=== PATIENT | male | born 1950 | race Caucasian/White ===

== ENCOUNTER 2023-05-27 00:53 | Inpatient (IN) | payer MEDICARE, OTHER ==
[~2023-05-27] VITALS: Ht 177.8 cm; Wt 71.8 kg
[2023-05-27] VITALS (18 sets, daily range): BP systolic 99–128; BP diastolic 26–69; TEMP 96.3–98; O2SAT 98–100
[2023-05-27] MEDS ORDERED: IV NORMAL SALINE 1000 ML BAG IV ONE (01:00)
[2023-05-27 01:10] LABS: BASOPHILS % (AUTO) 0.4 % (0.0-2.0); EOSINOPHILS # (AUTO) 0.1 K/uL (0.0-0.7); EOSINOPHILS % (AUTO) 1.4 % (0.0-7.0); LYMPHOCYTES # (AUTO) 1.9 K/uL (0.8-4.8); LYMPHOCYTES % (AUTO) 19.7 % (20.5-51.5); MEAN CORPUSCULAR HEMOGLOBIN 31.8 uug (23.8-33.4); MEAN CORPUSCULAR HGB CONC 34 g/dL (32.5-36.3); MEAN CORPUSCULAR VOLUME 94.9 fL (73.0-96.2); MONOCYTES % (AUTO) 10.2 % (0.0-11.0); NEUTROPHILS # (AUTO) 6.7 K/uL (1.8-8.9); NEUTROPHILS % (AUTO) 68.3 % (38.5-71.5); PLATELET COUNT (AUTO) 260 K/uL (152-348); RED CELL DISTRIBUTION WIDTH 18.9 % (12.1-16.2); WHITE BLOOD COUNT (AUTO) 9.8 K/uL (3.6-10.2)
[2023-05-27 01:11] LABS: RED BLOOD CELL COUNT(AUTO) 1.56 MIL/uL (4.06-5.63)
[2023-05-27] MEDS ORDERED: PANTOPRAZOLE SODIUM IV 40 MG in IV DEXTROSE 5% 100 ML IV ONE (01:15)
[2023-05-27 01:19] LABS: DIFFERENTIAL COMMENT 1; HEMATOCRIT 14.8 % (36.7-47.1)
[2023-05-27 01:21] LABS: AMMONIA 16 umol/L (11-32)
[2023-05-27 01:28] LABS: ALANINE AMINOTRANSFERASE 36 U/L (16-63); ALBUMIN 1.9 g/dL (3.4-5.0); ALKALINE PHOSPHATASE 149 U/L (50-136); ASPARTATE AMINOTRANSFERASE 40 U/L (15-37); BILIRUBIN,DIRECT 0.1 mg/dL (0.0-0.2); BILIRUBIN,TOTAL 0.4 mg/dL (0.2-1.0); CARBON DIOXIDE 21 mmol/L (21-32); CHLORIDE 104 mmol/L (98-107); CREATININE 3.1 mg/dL (0.6-1.3); GLUCOSE 124 mg/dL (74-106); POTASSIUM 4.6 mmol/L (3.5-5.1); SODIUM SERUM 135 mmol/L (136-145); TOTAL PROTEIN, SERUM 7.4 g/dL (6.4-8.2)
[2023-05-27] MEDS ORDERED: OCTREOTIDE ACETATE INJ 500 MCG in IV DEXTROSE 5% 100 ML IV ONE (01:30)
[2023-05-27 01:32] LABS: UREA NITROGEN, BLOOD 93 mg/dL (7-18)
[2023-05-27] MEDS ORDERED: ASCO500C18 PO (01:45)
[2023-05-27] MEDS ORDERED: LEVO75TA7 PO (01:45)
[2023-05-27] MEDS ORDERED: CARV6.252 PO (01:45)
[2023-05-27] MEDS ORDERED: CHOL100045 PO (01:45)
[2023-05-27] MEDS ORDERED: MULT-213 PO (01:45)
[2023-05-27] MEDS ORDERED: CYAN100096 PO (01:45)
[2023-05-27] MEDS ORDERED: MAGN400O6 PO (01:45)
[2023-05-27] MEDS ORDERED: BISA10SU61 RC (01:45)
[2023-05-27] MEDS ORDERED: ACET-73 PO (01:45)
[2023-05-27] MEDS ORDERED: AMLO1TAB98 PO (01:45)
[2023-05-27] MEDS ORDERED: NYST15CR38 TP (01:45)
[2023-05-27] MEDS ORDERED: DOCU100T2 PO (01:45)
[2023-05-27 01:49] LABS: *BILIRUBIN,URIN NEGATIVE (NEGATIVE); *BLOOD, URINE 2+ (NEGATIVE); *CLARITY,URINE CLEAR (CLEAR); *COLOR,URINE YELLOW (YELLOW); *KETONES,URINE NEGATIVE (NEGATIVE); *UROBILINOGEN,URINE 0.2 E.U./dl (NORMAL); LEUKOCYTE ESTERASE ,URINE NEGATIVE (NEGATIVE); NITRITE, URINE NEGATIVE (NEGATIVE); PH,URINE 5.5 (5.0-8.0); UGLUCOSE NEGATIVE (NEGATIVE)
[2023-05-27] MEDS ORDERED: PANTOPRAZOLE SODIUM 40 MG VIAL ONE (01:54)
[2023-05-27] MEDS ORDERED: OCTREOTIDE ACETATE 50 MCG/1 ML ML ONE (01:56)
[2023-05-27 01:59] LABS: *PROTEIN,URINE 3+ (NEGATIVE)
[2023-05-27 02:02] LABS: BACTERIA,URINE FEW /HPF (NONE SEEN); RBC,URINE 20-50 /HPF (0-3); SQUAMOUS EPITHELIAL CELL,UR NONE SEEN /HPF (NONE SEEN); WBC,URINE 0-3 /HPF (0-3)
[2023-05-27] MEDS ORDERED: ONDANSETRON 4 MG/2 ML VIAL IV PRN (06:00)
[2023-05-27] MEDS ORDERED: ACETAMINOPHEN 325 MG TABLET PO PRN (06:00)
[2023-05-27] MEDS ORDERED: PIPERACILLIN SODIUM/TAZOBACTAM 3.375 G in IV DEXTROSE 5% 50 ML IV ONE (08:00)
[2023-05-27] MEDS: PANTOPRAZOLE SODIUM 40 MG VIAL IV SCH ×2 (08:34→21:46)
[2023-05-27] MEDS: IV NS 1000 ML 1,000 ML IV PRN (10:16)
[2023-05-27] MEDS ORDERED: CRAN425C6 PO (10:41)
[2023-05-27] MEDS ORDERED: NYST1POW TOP (10:44)
[2023-05-27] MEDS ORDERED: PIPERACILLIN SODIUM/TAZOBACTAM 3.375 G in IV DEXTROSE 5% 50 ML IV SCH (12:00)
[2023-05-27 12:46] LABS: HEMOGLOBIN 4.2 g/dL (12.5-16.3)
[2023-05-27 12:47] LABS: HEMATOCRIT 12.4 % (36.7-47.1)
[2023-05-27] MEDS: OCTREOTIDE ACETATE DRIP 500 MCG in IV NORMAL SALINE 99 ML IV SCH (12:59)
[2023-05-27] MEDS: PIPERACILLIN SODIUM/TAZOBACTAM 3.375 G in IV DEXTROSE 5% 100 ML IV SCH (16:00)
[2023-05-27] MEDS: CARVEDILOL 6.25 MG TABLET PO SCH ×2 (18:00→20:04)
[2023-05-27] MEDS ORDERED: LABETALOL HCL 100 MG/20 ML VIAL IV PRN (20:45)
[2023-05-27] MEDS: ATORVASTATIN 20 MG TABLET PO SCH (21:00)
[2023-05-27] MEDS ORDERED: AMLODIPINE 10 MG TABLET PO SCH (21:00)
[2023-05-27 22:25] LABS: HEMATOCRIT 17.8 % (36.7-47.1); HEMOGLOBIN 5.9 g/dL (12.5-16.3)
[2023-05-28] VITALS (33 sets, daily range): BP systolic 97–130; BP diastolic 44–71; TEMP 97.5–99.6; O2SAT 100
[2023-05-28] MEDS: OCTREOTIDE ACETATE DRIP 500 MCG in IV NORMAL SALINE 99 ML IV SCH ×4 (01:32→20:26)
[2023-05-28] MEDS: PIPERACILLIN SODIUM/TAZOBACTAM 3.375 G in IV DEXTROSE 5% 100 ML IV SCH ×4 (01:32→23:06)
[2023-05-28 05:08] LABS: BASOPHILS % (AUTO) 0.3 % (0.0-2.0); EOSINOPHILS # (AUTO) 0.1 K/uL (0.0-0.7); LYMPHOCYTES # (AUTO) 1.1 K/uL (0.8-4.8); MONOCYTES # (AUTO) 0.8 K/uL (0.1-1.30)
[2023-05-28 05:11] LABS: EOSINOPHILS % (AUTO) 0.7 % (0.0-7.0); LYMPHOCYTES % (AUTO) 11.8 % (20.5-51.5); MEAN CORPUSCULAR HEMOGLOBIN 30.4 uug (23.8-33.4); MEAN CORPUSCULAR HGB CONC 35 g/dL (32.5-36.3); MEAN CORPUSCULAR VOLUME 86.7 fL (73.0-96.2); MONOCYTES % (AUTO) 8.9 % (0.0-11.0); NEUTROPHILS # (AUTO) 7.2 K/uL (1.8-8.9); NEUTROPHILS % (AUTO) 78.3 % (38.5-71.5); PLATELET COUNT (AUTO) 141 K/uL (152-348); RED CELL DISTRIBUTION WIDTH 16.5 % (12.1-16.2); WHITE BLOOD COUNT (AUTO) 9.1 K/uL (3.6-10.2)
[2023-05-28 05:15] LABS: HEMATOCRIT 20.4 % (36.7-47.1); HEMOGLOBIN 7.2 g/dL (12.5-16.3); RED BLOOD CELL COUNT(AUTO) 2.36 MIL/uL (4.06-5.63)
[2023-05-28 05:16] LABS: DIFFERENTIAL COMMENT 1
[2023-05-28 05:21] LABS: CALCIUM 7.7 mg/dL (8.5-10.1); CARBON DIOXIDE 21 mmol/L (21-32); CHLORIDE 113 mmol/L (98-107); CREATININE 3.3 mg/dL (0.6-1.3); GLUCOSE 148 mg/dL (74-106); MAGNESIUM 1.7 mg/dL (1.8-2.4); PHOSPHOROUS 4.8 mg/dL (2.5-4.9); POTASSIUM 5.2 mmol/L (3.5-5.1); SODIUM SERUM 143 mmol/L (136-145)
[2023-05-28 05:28] LABS: UREA NITROGEN, BLOOD 82 mg/dL (7-18)
[2023-05-28] MEDS: LEVOTHYROXINE SODIUM 75 MCG TABLET PO SCH (06:07)
[2023-05-28 07:23] LABS: HEMATOCRIT 20.6 % (36.7-47.1)
[2023-05-28] MEDS ORDERED: ASCORBIC ACID 500 MG TABLET PO SCH (09:00)
[2023-05-28] MEDS ORDERED: Medication Not On Formulary EA (Ascorbic Acid (Vitamin C) 500 MG) PO SCH (09:00)
[2023-05-28] MEDS ORDERED: Medication Not On Formulary EA (Cholecalciferol (Vitamin D3) (Vitamin D3) 1,000 UNITS) PO SCH (09:00)
[2023-05-28] MEDS: CHOLECALCIFEROL 1,000 UNIT TABLET PO SCH (09:00)
[2023-05-28] MEDS: PANTOPRAZOLE SODIUM 40 MG VIAL IV SCH ×2 (09:35→20:54)
[2023-05-28] MEDS ORDERED: FUROSEMIDE 20 MG/2 ML VIAL IV ONE ×2 (11:30→22:00)
[2023-05-28] MEDS ORDERED: LIDOCAINE-MPF 2% 5 ML VIAL ONE (13:00)
[2023-05-28] MEDS ORDERED: PROPOFOL 200 MG/20 ML BOTTLE ONE (13:00)
[2023-05-28] MEDS ORDERED: EPHEDRINE SULFATE 50 MG/ML AMPUL ONE (13:00)
[2023-05-28 15:19] LABS: BASOPHILS % (AUTO) 0.4 % (0.0-2.0); EOSINOPHILS # (AUTO) 0.1 K/uL (0.0-0.7); EOSINOPHILS % (AUTO) 1.1 % (0.0-7.0); LYMPHOCYTES # (AUTO) 1.3 K/uL (0.8-4.8); MEAN CORPUSCULAR HEMOGLOBIN 28.9 uug (23.8-33.4); MEAN CORPUSCULAR HGB CONC 33 g/dL (32.5-36.3); MEAN CORPUSCULAR VOLUME 86.4 fL (73.0-96.2); MONOCYTES # (AUTO) 0.9 K/uL (0.1-1.30); MONOCYTES % (AUTO) 10.2 % (0.0-11.0); NEUTROPHILS # (AUTO) 6.4 K/uL (1.8-8.9); NEUTROPHILS % (AUTO) 73.3 % (38.5-71.5); PLATELET COUNT (AUTO) 125 K/uL (152-348); RED CELL DISTRIBUTION WIDTH 16.3 % (12.1-16.2); WHITE BLOOD COUNT (AUTO) 8.7 K/uL (3.6-10.2)
[2023-05-28 15:20] LABS: RED BLOOD CELL COUNT(AUTO) 2.26 MIL/uL (4.06-5.63)
[2023-05-28 15:22] LABS: DIFFERENTIAL COMMENT 1; HEMATOCRIT 19.6 % (36.7-47.1); HEMOGLOBIN 6.5 g/dL (12.5-16.3)
[2023-05-28 18:12] LABS: BASOPHILS % (AUTO) 0.4 % (0.0-2.0); EOSINOPHILS # (AUTO) 0.1 K/uL (0.0-0.7); EOSINOPHILS % (AUTO) 1.1 % (0.0-7.0); LYMPHOCYTES # (AUTO) 1.2 K/uL (0.8-4.8); LYMPHOCYTES % (AUTO) 14.4 % (20.5-51.5); MEAN CORPUSCULAR HEMOGLOBIN 29.5 uug (23.8-33.4); MEAN CORPUSCULAR HGB CONC 34 g/dL (32.5-36.3); MEAN CORPUSCULAR VOLUME 86.7 fL (73.0-96.2); MONOCYTES # (AUTO) 0.9 K/uL (0.1-1.30); MONOCYTES % (AUTO) 10.2 % (0.0-11.0); NEUTROPHILS # (AUTO) 6.2 K/uL (1.8-8.9); NEUTROPHILS % (AUTO) 73.9 % (38.5-71.5); PLATELET COUNT (AUTO) 121 K/uL (152-348); RED CELL DISTRIBUTION WIDTH 16.6 % (12.1-16.2); WHITE BLOOD COUNT (AUTO) 8.4 K/uL (3.6-10.2)
[2023-05-28 18:13] LABS: ALANINE AMINOTRANSFERASE 33 U/L (16-63); ALKALINE PHOSPHATASE 84 U/L (50-136); ASPARTATE AMINOTRANSFERASE 42 U/L (15-37); BILIRUBIN,TOTAL 0.6 mg/dL (0.2-1.0); CALCIUM 7.5 mg/dL (8.5-10.1); CARBON DIOXIDE 21 mmol/L (21-32); CHLORIDE 116 mmol/L (98-107); CREATININE 3.7 mg/dL (0.6-1.3); GLUCOSE 162 mg/dL (74-106); MAGNESIUM 1.6 mg/dL (1.8-2.4); POTASSIUM 4.6 mmol/L (3.5-5.1); SODIUM SERUM 147 mmol/L (136-145); TOTAL PROTEIN, SERUM 4.7 g/dL (6.4-8.2); UREA NITROGEN, BLOOD 72 mg/dL (7-18)
[2023-05-28 18:15] LABS: ALBUMIN 1.4 g/dL (3.4-5.0)
[2023-05-28 18:16] LABS: DIFFERENTIAL COMMENT 1; HEMATOCRIT 18.8 % (36.7-47.1); HEMOGLOBIN 6.4 g/dL (12.5-16.3); RED BLOOD CELL COUNT(AUTO) 2.17 MIL/uL (4.06-5.63)
[2023-05-28] MEDS: IV NS 1000 ML 1,000 ML IV PRN (20:24)
[2023-05-28] MEDS: ATORVASTATIN 20 MG TABLET PO SCH (20:54)
[2023-05-29] VITALS (22 sets, daily range): BP systolic 95–140; BP diastolic 42–82; TEMP 97.4–98.2; O2SAT 95–100
[2023-05-29] MEDS: PANTOPRAZOLE SODIUM 40 MG VIAL IV SCH (06:52)
[2023-05-29] MEDS: LEVOTHYROXINE SODIUM 75 MCG TABLET PO SCH (07:23)
[2023-05-29] MEDS ORDERED: FUROSEMIDE 20 MG/2 ML VIAL IV ONE (07:45)
[2023-05-29] MEDS ORDERED: HALOPERIDOL LACTATE 5 MG/1 ML VIAL IM ONE (08:45)
[2023-05-29] MEDS ORDERED: PIPERACILLIN SODIUM/TAZOBACTAM 3.375 G in IV DEXTROSE 5% 100 ML IV SCH (09:00)
[2023-05-29] MEDS: CHOLECALCIFEROL 1,000 UNIT TABLET PO SCH (09:00)
[2023-05-29 10:28] LABS: BASOPHILS # (AUTO) 0.1 K/UL (0.0-0.2); BASOPHILS % (AUTO) 0.9 % (0.0-2.0); DIFFERENTIAL COMMENT 0; EOSINOPHILS # (AUTO) 0.2 K/uL (0.0-0.7); EOSINOPHILS % (AUTO) 2.3 % (0.0-7.0); HEMATOCRIT 22.3 % (36.7-47.1); LYMPHOCYTES # (AUTO) 1.9 K/uL (0.8-4.8); LYMPHOCYTES % (AUTO) 18.1 % (20.5-51.5); MEAN CORPUSCULAR HEMOGLOBIN 28.5 uug (23.8-33.4); MEAN CORPUSCULAR HGB CONC 34 g/dL (32.5-36.3); MEAN CORPUSCULAR VOLUME 84.8 fL (73.0-96.2); MONOCYTES # (AUTO) 1.1 K/uL (0.1-1.30); MONOCYTES % (AUTO) 10.7 % (0.0-11.0); PLATELET COUNT (AUTO) 130 K/uL (152-348); RED BLOOD CELL COUNT(AUTO) 2.63 MIL/uL (4.06-5.63); RED CELL DISTRIBUTION WIDTH 16.9 % (12.1-16.2); WHITE BLOOD COUNT (AUTO) 10.3 K/uL (3.6-10.2)
[2023-05-29 10:29] LABS: HEMOGLOBIN 7.4 g/dL (12.5-16.3)
[2023-05-29] MEDS ORDERED: FOLIC ACID 1 MG TABLET PO SCH (10:30)
[2023-05-29] MEDS ORDERED: THIAMINE HCL INJ 100 MG in IV DEXTROSE 5% 50 ML IV SCH ×2 (11:00→14:00)
[2023-05-29 11:40] LABS: IRON, SERUM 152 ug/dL (50-175)
[2023-05-29] MEDS: MAGNESIUM SULFATE/D5W 100 ML IV SCH ×2 (11:58→13:06)
[2023-05-29] MEDS ORDERED: SOD FERRIC GLUC COMPLX/SUCROSE 125 MG in IV NORMAL SALINE 100 ML IV SCH (14:00)
== END 2023-05-29 18:00 | disposition short-term general hospital (02) | DRG 326 ==
LOC: ER 01:03 → TELE-TD3 04:00 → CCU 13:50
PROVIDERS: ADMIT Internal Medicine; ATTEND Internal Medicine
PROC: 30233N1 Transfusion of Nonautologous Red Blood Cells into Peripheral Vein, Percutaneous Approach (ICD-10-PCS; 2023-05-27)
PROC: 0D998ZZ Drainage of Duodenum, Via Natural or Artificial Opening Endoscopic (ICD-10-PCS; principal; 2023-05-28)
PROC: 02HV33Z Insertion of Infusion Device into Superior Vena Cava, Percutaneous Approach (ICD-10-PCS; 2023-05-28)
PROC: B548ZZA Ultrasonography of Superior Vena Cava, Guidance (ICD-10-PCS; 2023-05-28)
PROC: 0DB68ZX Excision of Stomach, Via Natural or Artificial Opening Endoscopic, Diagnostic (ICD-10-PCS; 2023-05-28)
DX: K92.2 Gastrointestinal hemorrhage, unspecified (principal); G92.8 Other toxic encephalopathy; I63.9 Cerebral infarction, unspecified; N17.0 Acute kidney failure with tubular necrosis; D62 Acute posthemorrhagic anemia; G81.91 Hemiplegia, unspecified affecting right dominant side; C90.00 Multiple myeloma not having achieved remission; I50.22 Chronic systolic (congestive) heart failure; I13.0 Hypertensive heart and chronic kidney disease with heart failure and stage 1 through stage 4 chronic kidney disease, or unspecified chronic kidney disease; R65.10 Systemic inflammatory response syndrome (SIRS) of non-infectious origin without acute organ dysfunction; R29.704 NIHSS score 4; E03.9 Hypothyroidism, unspecified; E78.5 Hyperlipidemia, unspecified; E83.42 Hypomagnesemia; N18.9 Chronic kidney disease, unspecified; E87.5 Hyperkalemia; Z86.73 Personal history of transient ischemic attack (TIA), and cerebral infarction without residual deficits; K29.70 Gastritis, unspecified, without bleeding; Z20.822 Contact with and (suspected) exposure to COVID-19; F03.90 Unspecified dementia, unspecified severity, without behavioral disturbance, psychotic disturbance, mood disturbance, and anxiety; M89.8X9 Other specified disorders of bone, unspecified site
CPT/HCPCS: 36415; 70450; 71045; 83550; 83605; 83735; 84100; 84484; 85018; 85025; 85730; 86850; 86900; 86901; 86920; 87040; 93005; 93307; 93880; A4663; C1758; C9113; G0378; J1630; J1940; J2354; J2405; J2543; J2916; J3411; J3475; J3490; J7040; P9016